=== PATIENT | male | born 1990 | race Caucasian/White ===

== ENCOUNTER 2017-04-28 19:14 | Emergency (ER) | payer SELFPAY, OTHER ==
[2017-04-28] MEDS ORDERED: Dexamethasone 10 MG/ML VIAL ONE (19:40)
== END 2017-04-28 20:10 | disposition home or self-care (01) ==
LOC: EDSEX 19:14 → SCSER 19:14
DX: L23.7 Allergic contact dermatitis due to plants, except food (principal)
CPT/HCPCS: 96372; J1100